=== PATIENT | female | born 1990 | race Caucasian/White ===

== ENCOUNTER 2016-05-24 21:48 | Emergency (ER) | payer MEDICAID, SELFPAY ==
[~2016-05-24] VITALS: Ht 160 cm; Wt 50.8 kg
[~2016-05-24 21:48] MED LIST: guaiFENesin ER 600 MG TAB PO ONE
[2016-05-24] MEDS ORDERED: ZITHTAB AD (23:44)
[2016-05-24] MEDS ORDERED: FLON1SPR (23:44)
[2016-05-24] MEDS ORDERED: MUCI600T34 PO (23:44)
[2016-05-24] MEDS ORDERED: guaiFENesin ER 600 MG TAB PO ONE (23:45)
[2016-05-24] MEDS ORDERED: AZITHROMYCIN 250 MG TAB PO ONE (23:45)
[2016-05-24] MEDS ORDERED: ACETAMINOPHEN 325 MG TAB PO ONE (23:45)
[2016-05-25] MEDS ORDERED: ONDANSETRON 4 MG TAB (S0181) PO ONE (00:15)
[2016-05-25 00:29] VITALS: BP 115/64
== END 2016-05-25 00:31 | disposition home or self-care (01) ==
LOC: M ED 22:50
DX: H65.02 Acute serous otitis media, left ear (principal); F17.210 Nicotine dependence, cigarettes, uncomplicated; Z88.0 Allergy status to penicillin; Z88.2 Allergy status to sulfonamides

== ENCOUNTER 2016-11-09 17:42 | Inpatient (IN) | payer SELFPAY ==
[~2016-11-09] VITALS: Ht 160 cm; Wt 48.0 kg
[~2016-11-09 17:42] MED LIST changes: +FLON1SPR; +MUCI600T37 PO; +ZITHTAB AD; -guaiFENesin ER 600 MG TAB PO ONE
[2016-11-09] MEDS ORDERED: BUSP10TA PO (17:59)
[2016-11-09] MEDS ORDERED: CELE10TA PO (17:59)
[2016-11-09] MEDS ORDERED: CITA10TA5 PO (18:24)
[2016-11-09] MEDS ORDERED: BUSP5TA PO (18:25)
[2016-11-09] MEDS ORDERED: CITA20TA4 PO (18:25)
[2016-11-09] MEDS ORDERED: MAALOX 30 ML SUSP *UDC PO PRN (19:45)
[2016-11-09] MEDS ORDERED: LORazepam 1 MG TAB PO PRN (19:45)
[2016-11-09] MEDS ORDERED: MOM 30ML SUSPENSION UDC PO PRN (19:45)
[2016-11-09 20:45] VITALS: BP 107/73
[2016-11-09] MEDS: ACETAMINOPHEN TAB 650MG DOSE (2X325MG) PO PRN (21:07)
[2016-11-09] MEDS: QUEtiapine FUMARATE 100 MG TAB PO PRN (23:01)
[2016-11-10 07:12] VITALS: BP 107/73
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
[2016-11-10] MEDS: hydrOXYzine 50 MG TAB PO SCH ×2 (11:06→18:17)
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
[2016-11-10] MEDS: NICOTINE 21MG/24HR 1 EA TRANSDERMAL TD SCH (15:55)
[2016-11-10 18:00] VITALS: BP 99/69
[2016-11-10] MEDS: QUEtiapine FUMARATE 100 MG TAB PO PRN (21:32)
[2016-11-11] MEDS: hydrOXYzine 50 MG TAB PO SCH ×3 (00:23→12:22)
[2016-11-11 06:00] VITALS: BP 95/65
[2016-11-11] MEDS: ACETAMINOPHEN TAB 650MG DOSE (2X325MG) PO PRN (06:50)
[2016-11-11] MEDS: NICOTINE 21MG/24HR 1 EA TRANSDERMAL TD SCH (08:31)
[2016-11-11] MEDS ORDERED: NITROFURANTOIN (MACROBID) 100 MG CAP PO SCH (09:00)
--- NOTE | 2016-11-11 09:25 | MHIPNPDOC ---
[facility] Progress Note Progress Note DATE OF SERVICE: 11/11/16 HISTORY: day 3 of admission VITAL SIGNS: See below. NEW TEST RESULTS: . CURRENT MEDICATIONS: See below. MENTAL STATUS EXAMINATION: Patient is a -year old female, who is . Speech: Is . Language skills are . Thought processes including: . Thought content: . Abstract reasoning, and computation: . Description of associations: . Description of abnormal or psychotic thoughts: . Judgment: . Insight: [very limited, good, fair. poor]. Orientation: . Recent and remote memory: . Attention span and concentration: . Language: . Fund of knowledge: . Mood: . Affect: . DIAGNOSES: 1. . 2. . 3. . ASSESSMENT: MANAGEMENT PLAN: . TIME SPENT: minutes. Vital Signs Vital Signs Date Time Temp Pulse Resp B/P (MAP) Pulse Ox O2 Delivery O2 Flow Rate FiO2 11/11/16 06:00 97.5 98 18 95/65 (75) Room Air 11/10/16 07:12 98 Current Medications Current Medications Acetaminophen (Tylenol Tab) 650 mg Q6HP PRN PO HEADACHE or DISCOMFORT Last administered on 11/11/16 06:50; Start 11/09/16 at 19:45; Stop 12/09/16 at 19: 44 Al Hydrox/Mg Hydrox/Simethicone (Mylanta) 30 ml Q4HP PRN PO HEARTBURN/ INDIGESTION; Start 11/09/16 at 19:45; Stop 12/09/16 at 19:44 Home Med (Med Rec Complete!) ASDIRECTED XX ; Start 11/09/16 at 18:30; Stop at 18:30; Status DC Hydroxyzine HCl (Atarax) 50 mg Q6H PO Last administered on 11/11/16 06:05; Start 11/10/16 at 12:00; Stop 12/10/16 at 11:59 Lorazepam (Ativan) 1 mg TIDP PRN PO ANXIETY/AGITATION; Start 11/09/16 at 19:45 ; Stop 11/16/16 at 19:44; Status Cancel Magnesium Hydroxide (Milk Of Magnesia) 30 ml DAILYPRN PRN PO CONSTIPATION; Start 11/09/16 at 19:45; Stop 12/09/16 at 19:44 Nicotine (Nicoderm Cq 21mg) 1 patch DAILY TD Last administered on 11/11/16 08: 31; Start 11/10/16 at 09:00; Stop 12/10/16 at 08:59 Quetiapine Fumarate (SEROquel) 100 mg QHSP PRN PO SLEEP Last administered on 21:32; Start 11/09/16 at 19:45; Stop 12/09/16 at 19:44 Allergies Coded Allergies: Amoxicillin (Verified Allergy, Unknown, hives, 11/09/16) Penicillins (Verified Allergy, Unknown, hives, 11/09/16) Sulfa Antibiotics (Verified Allergy, Unknown, hives, 11/09/16) Ruth Ventura Nov 11, 2016 09:24
[2016-11-11] MEDS ORDERED: HYDRO50TAB PO (12:00)
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
[2016-11-11] MEDS ORDERED: NITR100C2 PO (14:22)
== END 2016-11-11 15:50 | disposition home or self-care (01) | DRG 754 ==
LOC: M ED 17:42 → M ED INP 19:34 → M PSY 20:41
PROVIDERS: ADMIT Psychiatry & Neurology Psychiatry; ATTEND Psychiatry & Neurology Psychiatry
DX: F32.9 Major depressive disorder, single episode, unspecified (principal); F19.94 Other psychoactive substance use, unspecified with psychoactive substance-induced mood disorder; Z63.4 Disappearance and death of family member; F43.21 Adjustment disorder with depressed mood; Z88.0 Allergy status to penicillin; Z88.2 Allergy status to sulfonamides; F17.200 Nicotine dependence, unspecified, uncomplicated; Z79.899 Other long term (current) drug therapy

== ENCOUNTER 2016-12-22 12:34 | Inpatient (IN) | payer SELFPAY ==
[2016-12-21 16:52] VITALS: BP 113/70
[~2016-12-22] VITALS: Ht 160 cm; Wt 47.0 kg
[~2016-12-22 12:34] MED LIST changes: +BUSP10TA PO; +BUSP5TA PO; +CELE10TA PO; +CITA10TA5 PO; +CITA20TA4 PO; +CitaloPRAM (CeleXA) 20 MG TAB PO SCH; +HYDRO50TAB PO; +NITR100C2 PO
[2016-12-22] MEDS ORDERED: WELL100T2 PO (12:48)
[2016-12-22 13:52] LABS: MEAN CORPUSCULAR HEMOGLOBIN 29.3 pg (27.0-33.0); MEAN CORPUSCULAR HGB CONC 33.3 g/dl (32.0-36.5); PLATELET COUNT, AUTOMATED 218 10^3/uL (150-450); RED CELL DISTRIBUTION WIDTH 12.3 % (11.5-14.5); WHITE BLOOD COUNT 6.7 10^3/uL (4.0-10.0)
[2016-12-22 14:12] LABS: CONTROL LINE HCG INT CTR LINE PRESENT
[2016-12-22 14:28] LABS: ALBUMIN 4.1 GM/DL (3.2-5.2); ALBUMIN/GLOBULIN RATIO 1.28 (1.00-1.93); ALKALINE PHOSPHATASE 66 U/L (45-117); ALT/SGPT 14 U/L (12-78); ANION GAP 3 MEQ/L (8-16); AST/SGOT 12 U/L (7-37); BILIRUBIN,DIRECT 0.3 MG/DL (0.0-0.2); BILIRUBIN,TOTAL 1.1 MG/DL (0.2-1.0); BLOOD UREA NITROGEN 12 MG/DL (7-18); CALCIUM LEVEL 9.1 MG/DL (8.5-10.1); CARBON DIOXIDE LEVEL 31 MEQ/L (21-32); CHLORIDE LEVEL 106 MEQ/L (98-107); CREATININE FOR GFR 0.83 MG/DL (0.55-1.02); GLOMERULAR FILTRATION RATE > 60.0 (>60); GLUCOSE, FASTING 56 MG/DL (70-105); POTASSIUM SERUM 3.9 MEQ/L (3.5-5.1); SODIUM LEVEL 140 MEQ/L (136-145); TOTAL PROTEIN 7.3 GM/DL (6.4-8.2)
[2016-12-22 14:30] LABS: METHADONE URINE NEGATIVE (NEGATIVE)
[2016-12-22] MEDS ORDERED: MAALOX 30 ML SUSP *UDC PO PRN (15:15)
[2016-12-22] MEDS ORDERED: MOM 30ML SUSPENSION UDC PO PRN (15:15)
[2016-12-22] MEDS ORDERED: HYDR-3363 PO (19:10)
[2016-12-22] MEDS: QUEtiapine FUMARATE 25 MG TAB PO PRN (20:09)
[2016-12-22] MEDS: OLANZapine ORAL DISINTEGRATING TAB 5MG PO PRN (21:29)
[2016-12-23 06:33] VITALS: BP 95/53
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
[2016-12-23] MEDS ORDERED: PARoxetine 12.5 MG **CR** TAB PO SCH (09:00)
[2016-12-23] MEDS: NICOTINE 21MG/24HR 1 EA TRANSDERMAL TD SCH ×2 (09:00→14:27)
--- NOTE | 2016-12-23 10:28 | REP ---
CT Head without contrast HISTORY: Left ear numbness COMPARISON: None There is no intraparenchymal hemorrhage, acute infarct, mass or midline shift. The ventricular system is normal in appearance. There is no extra cerebral collection. There is no fracture. The visualized sinuses and mastoid air cells are clear. IMPRESSION: There is no intracranial lesion. Signed by Jim Estrada MD 12/23/2016 10:19 A
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
[2016-12-23] MEDS: ACETAMINOPHEN TAB 650MG DOSE (2X325MG) PO PRN ×2 (16:10→17:41)
[2016-12-23 18:00] VITALS: BP 117/55
--- NOTE | 2016-12-23 20:15 | ECGEPIP ---
Stationary ECG Study [facility] Test Date: 2016-12-23 Pat Name: OLESYA ROSS Department: Room: [place] [address] Gender: F Bank Courier: KENDY : 1990 Requested By: Lauren Dow Order Number: [id number] Reading MD: Marilyn Rosas Measurements Intervals [place] Rate: 56 P: 37 MN: 148 QRS: 74 QRSD: 93 T: 68 QT: 389 QTc: 377 Interpretive Statements SINUS BRADYCARDIA NO PRIOR Electronically Signed On 12-23-2016 20:15:33 EST by Marilyn Rosas
[2016-12-23] MEDS: QUEtiapine FUMARATE 25 MG TAB PO PRN (20:51)
[2016-12-24 06:28] VITALS: BP 119/60
[2016-12-24] MEDS: OLANZapine ORAL DISINTEGRATING TAB 5MG PO PRN (08:21)
[2016-12-24] MEDS: NICOTINE 21MG/24HR 1 EA TRANSDERMAL TD SCH (08:21)
[2016-12-24] MEDS: PARoxetine 25 MG CR TAB (PAXIL CR) PO SCH (08:21)
[2016-12-24] MEDS: risperiDONE 1 MG TAB PO SCH ×2 (09:00→20:25)
[2016-12-24] MEDS ORDERED: INFLUENZA QUADRIVALENT PF VACCINE 0.5ML SYRINGE (90686) IM ONE (09:00)
[2016-12-24 09:49] VITALS: BP 119/60
[2016-12-24 10:34] LABS: FOLATE 15.4 NG/ML (>5.4)
[2016-12-24] MEDS: hydrOXYzine 25 MG TAB PO SCH ×2 (16:52→20:24)
[2016-12-24 18:00] VITALS: BP 113/75
[2016-12-24] MEDS: QUEtiapine FUMARATE 25 MG TAB PO PRN (20:24)
[2016-12-25 06:41] VITALS: BP 124/72
[2016-12-25] MEDS: risperiDONE 1 MG TAB PO SCH ×2 (08:44→21:51)
[2016-12-25] MEDS: hydrOXYzine 25 MG TAB PO SCH ×3 (08:44→21:51)
[2016-12-25] MEDS: NICOTINE 21MG/24HR 1 EA TRANSDERMAL TD SCH (08:44)
[2016-12-25] MEDS: PARoxetine 25 MG CR TAB (PAXIL CR) PO SCH (08:44)
[2016-12-25] MEDS: ACETAMINOPHEN TAB 650MG DOSE (2X325MG) PO PRN (09:30)
[2016-12-25] MEDS ORDERED: SUMAtriptan SUCCINATE 25 MG TAB PO ONE (12:15)
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
[2016-12-25] MEDS: LevoFLOXacin 500 MG TABLET PO SCH (14:04)
[2016-12-25 18:00] VITALS: BP 118/78
[2016-12-25] MEDS ORDERED: INFLUENZA QUADRIVALENT PF VACCINE 0.5ML SYRINGE (90686) IM ONE (18:45)
[2016-12-25] MEDS: OLANZapine ORAL DISINTEGRATING TAB 5MG PO PRN (19:52)
--- NOTE | 2016-12-25 21:29 | MHIPN ---
DATE: 12/25/2016 HISTORY: A 26-year-old female admitted for depression and risk of suicide. MEDICATIONS: - Paxil 25 mg by mouth every morning - Risperdal 1 mg by mouth twice a day - Seroquel 75 mg by mouth at bedtime as needed SUBJECTIVE: "I have a bad migraine." OBJECTIVE: The patient is in bed, covering her head because of a severe migraine by her report. She also has a urinary tract infection (UTI) which is positive for Escherichia (E.) coli. The patient is denying side effect from the medication. MENTAL STATUS EXAMINATION: The patient is dressed in [facility]. The patient is cooperative. Has poor eye contact. Speech is slow and monotone. Mood is depressed and anxious. Affect is restricted. No evidence of delusions or hallucinations. Memory, attention and concentration are fair. The patient is able to contract for safety while in the hospital. Insight and judgment are limited. ASSESSMENT: 1. Depression. 2. Risk for suicide. 3. Cocaine/cannabis abuse. PLAN: 1. Start Levaquin 500 mg by mouth daily for UTI 2. Give Imitrex 50 mg by mouth now times one for migraine. 3. Continue Paxil 25 mg by mouth every morning. 4. Continue Risperdal 1 mg by mouth twice a day. 5. Continue Seroquel 75 mg by mouth at bedtime as needed for insomnia. 6. Continue medication management, individual and group therapy.
[2016-12-25] MEDS: QUEtiapine FUMARATE 25 MG TAB PO PRN (21:51)
[2016-12-26] MEDS: LevoFLOXacin 500 MG TABLET PO SCH (05:59)
[2016-12-26 06:45] VITALS: BP 114/54
[2016-12-26] MEDS: PARoxetine 25 MG CR TAB (PAXIL CR) PO SCH (08:30)
[2016-12-26] MEDS: hydrOXYzine 25 MG TAB PO SCH ×3 (08:30→20:59)
[2016-12-26] MEDS: NICOTINE 21MG/24HR 1 EA TRANSDERMAL TD SCH (08:30)
[2016-12-26] MEDS: risperiDONE 1 MG TAB PO SCH ×2 (08:30→20:59)
[2016-12-26] MEDS: ACETAMINOPHEN TAB 650MG DOSE (2X325MG) PO PRN ×2 (08:30→16:11)
[2016-12-26] MEDS: OLANZapine ORAL DISINTEGRATING TAB 5MG PO PRN (10:26)
[2016-12-26 12:30] VITALS: BP 94/54
[2016-12-26 18:00] VITALS: BP 109/55
[2016-12-26 20:06] LABS: BASO % 0.3 % (0.0-1.0); EOS % 0.3 % (0.0-3.0); IMMATURE GRANULOCYTE % 0.3 % (0-0); LYMPH # 1.3 10^3/uL (1.5-6.5); LYMPH % 16.2 % (24.0-44.0); MEAN CORPUSCULAR HEMOGLOBIN 29.6 pg (27.0-33.0); MEAN CORPUSCULAR HGB CONC 34.5 g/dl (32.0-36.5); MEAN CORPUSCULAR VOLUME 85.6 fl (80.0-96.0); MONO # 0.6 10^3/uL (0.0-0.8); MONO % 7.8 % (0.0-5.0); NEUTROPHILS % 75.1 % (36.0-66.0); PLATELET COUNT, AUTOMATED 174 10^3/uL (150-450)
[2016-12-26] MEDS: ONDANSETRON 4 MG ORAL DISINTEGRATING TAB (S0181) SL SCH (20:25)
--- NOTE | 2016-12-26 20:33 | MHIPN ---
DATE: 12/26/2016 HISTORY: A 26-year-old female admitted for depression and suicide risk. MEDICATIONS: - Paxil 25 mg by mouth every morning - Risperdal 1 mg by mouth twice a day - Seroquel 75 mg by mouth at bedtime SUBJECTIVE: "My migraine is back." OBJECTIVE: The patient reports some degree of dizziness and weakness when she gets out of bed. Says that her migraine was better after she took Imitrex but it is back this morning. She is being treated for urinary tract infection (UTI) with Levaquin. UTI is positive for Escherichia (E.) coli. The patient continues somewhat depressed with a sad, restricted facial expression. No evidence of psychotic features. No auditory or visual hallucinations or delusions. The patient denies side effect from the medication. MENTAL STATUS EXAMINATION: The patient dressed in [facility]. The patient is cooperative, has poor eye contact. Speech is slow and monotone. Mood is depressed and anxious. Affect is restricted. No delusions or hallucinations. Memory, attention and concentration are fair. The patient is able to contract for safety while in the hospital. Insight and judgment are limited. ASSESSMENT: 1. Depression. 2. Risk for suicide. 3. Cocaine/cannabis abuse. PLAN: 1. Continue Paxil 25 mg by mouth every morning. 2. Continue Risperdal 1 mg by mouth twice a day. 3. Continue Seroquel 75 by mouth at bedtime as needed for insomnia 4. Continue medication management, individual and group therapy.
[2016-12-26 20:43] LABS: ALBUMIN/GLOBULIN RATIO 1.54 (1.00-1.93); ALKALINE PHOSPHATASE 59 U/L (45-117); ALT/SGPT 14 U/L (12-78); ANION GAP 6 MEQ/L (8-16); AST/SGOT 9 U/L (7-37); BILIRUBIN,TOTAL 1.3 MG/DL (0.2-1.0); BLOOD UREA NITROGEN 17 MG/DL (7-18); CALCIUM LEVEL 9.1 MG/DL (8.5-10.1); CARBON DIOXIDE LEVEL 28 MEQ/L (21-32); CHLORIDE LEVEL 105 MEQ/L (98-107); CREATININE FOR GFR 0.93 MG/DL (0.55-1.02); GLOMERULAR FILTRATION RATE > 60.0 (>60); GLUCOSE, FASTING 129 MG/DL (70-105); POTASSIUM SERUM 3.9 MEQ/L (3.5-5.1); SODIUM LEVEL 139 MEQ/L (136-145); TOTAL PROTEIN 6.6 GM/DL (6.4-8.2)
[2016-12-26] MEDS: QUEtiapine FUMARATE 25 MG TAB PO PRN (21:01)
[2016-12-26] MEDS: NITROFURANTOIN (MACROBID) 100 MG CAP PO SCH (21:27)
[2016-12-27] MEDS: ONDANSETRON 4 MG ORAL DISINTEGRATING TAB (S0181) SL SCH ×3 (02:00→13:37)
[2016-12-27 06:37] VITALS: BP 117/72
[2016-12-27 07:29] LABS: BASO % 0.7 % (0.0-1.0); EOS # 0.1 10^3/uL (0.0-0.50); IMMATURE GRANULOCYTE % 0.2 % (0-0); LYMPH # 1.6 10^3/uL (1.5-6.5); LYMPH % 26.3 % (24.0-44.0); MEAN CORPUSCULAR HEMOGLOBIN 29.3 pg (27.0-33.0); MEAN CORPUSCULAR HGB CONC 33.6 g/dl (32.0-36.5); MONO # 0.6 10^3/uL (0.0-0.8); MONO % 9.6 % (0.0-5.0); NEUTROPHILS # 3.7 10^3/uL (1.8-7.7); NEUTROPHILS % 61.2 % (36.0-66.0); PLATELET COUNT, AUTOMATED 180 10^3/uL (150-450); RED CELL DISTRIBUTION WIDTH 12.1 % (11.5-14.5); WHITE BLOOD COUNT 6.1 10^3/uL (4.0-10.0)
[2016-12-27 08:03] LABS: ALBUMIN 4.1 GM/DL (3.2-5.2); ALBUMIN/GLOBULIN RATIO 1.46 (1.00-1.93); ALKALINE PHOSPHATASE 62 U/L (45-117); ALT/SGPT 15 U/L (12-78); ANION GAP 8 MEQ/L (8-16); AST/SGOT 11 U/L (7-37); BILIRUBIN,TOTAL 1.2 MG/DL (0.2-1.0); BLOOD UREA NITROGEN 15 MG/DL (7-18); CALCIUM LEVEL 8.9 MG/DL (8.5-10.1); CARBON DIOXIDE LEVEL 27 MEQ/L (21-32); CHLORIDE LEVEL 105 MEQ/L (98-107); CREATININE FOR GFR 0.96 MG/DL (0.55-1.02); GLOMERULAR FILTRATION RATE > 60.0 (>60); GLUCOSE, FASTING 76 MG/DL (70-105); POTASSIUM SERUM 4.2 MEQ/L (3.5-5.1); SODIUM LEVEL 140 MEQ/L (136-145); TOTAL PROTEIN 6.9 GM/DL (6.4-8.2)
[2016-12-27] MEDS: PARoxetine 25 MG CR TAB (PAXIL CR) PO SCH (08:15)
[2016-12-27] MEDS: hydrOXYzine 25 MG TAB PO SCH (08:15)
[2016-12-27] MEDS: NITROFURANTOIN (MACROBID) 100 MG CAP PO SCH (08:15)
[2016-12-27] MEDS: risperiDONE 1 MG TAB PO SCH (08:15)
[2016-12-27] MEDS: NICOTINE 21MG/24HR 1 EA TRANSDERMAL TD SCH (08:15)
[2016-12-27] MEDS: ACETAMINOPHEN TAB 650MG DOSE (2X325MG) PO PRN (08:36)
[2016-12-27] MEDS ORDERED: ONDA4TAB6 SL (11:14)
[2016-12-27] MEDS ORDERED: QUET1TAB7 PO (11:14)
[2016-12-27] MEDS ORDERED: MACR100C43 PO (11:14)
[2016-12-27] MEDS ORDERED: PARO25TA PO (11:14)
[2016-12-27] MEDS ORDERED: RISP1TAB42 PO (11:14)
[2016-12-27] MEDS ORDERED: NICO21PAT TD (11:14)
[2016-12-27] MEDS ORDERED: HYDR-3363 PO (11:14)
[2016-12-27] MEDS ORDERED: OLAN5ZYD PO (11:14)
[2016-12-27] MEDS: OLANZapine ORAL DISINTEGRATING TAB 5MG PO PRN (11:38)
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
--- NOTE | 2016-12-28 07:27 | MHIPN ---
DATE OF SERVICE: 12/26/2016 This is a 26-year-old female inpatient on the mental health unit who states that since yesterday, she has been nauseated. She has had three emesis today. She had emesis of her breakfast and lunch, this afternoon another emesis of liquids. She has not had any nausea. She denies any abdominal pain. She denies any hemoptysis, hematemesis, hematochezia, melena, rectal bleeding. She has slight lightheadedness. No chills. OBJECTIVE: Temperature 99.4, blood pressure 109/56, pulse 86, respirations 16. Lying blood pressure was 129/63, sitting 120/54 and standing 129/61. Pulse lying 85, sitting 92, standing 110. Patient is alert and oriented times three. Pupils equal and reactive to light. Extraocular movement intact. Cornea and sclera clear. Conjunctiva normal. No facial asymmetry. Buccal mucosa slightly dry. Tongue and gums pink and moist. Tongue is midline. Neck is supple, without lymphadenopathy. No thyromegaly. No goiter. Carotids 2+ without bruit. Chest clear to auscultation, without wheeze or retraction. Heart is regular. Abdomen soft, nontender, no masses, pulsations or bruits. No organomegaly. Bowel sounds positive. No CVA tenderness bilaterally. /Rectal: Not done. Extremities show equal strength. Full range of motion. No cyanosis, clubbing or edema. Peripheral pulses equal and palpable bilaterally. Skin is warm and dry. IMPRESSION: Nausea and vomiting, probably viral. She has no pain. Will get a STAT CBC, CMP, repeat in the morning. Will encourage at least 8-10 glasses per day starting today of clear non-caffeinated liquids. Zofran for nausea. Recheck labs in the morning. Patient was instructed to notify staff if she had any further emesis or developed any abdominal pain or discomfort. She verbalized agreement and understanding.
== END 2016-12-27 13:35 | disposition home or self-care (01) | DRG 753 ==
LOC: M ED 12:34 → M ED INP 15:06 → M PSY 16:10
PROVIDERS: ADMIT Psychiatry & Neurology Psychiatry; ATTEND Psychiatry & Neurology Psychiatry
DX: F31.9 Bipolar disorder, unspecified (principal); F14.10 Cocaine abuse, uncomplicated; F60.3 Borderline personality disorder; F17.210 Nicotine dependence, cigarettes, uncomplicated; F43.10 Post-traumatic stress disorder, unspecified; R94.6 Abnormal results of thyroid function studies; R20.0 Anesthesia of skin; F12.10 Cannabis abuse, uncomplicated; Z79.899 Other long term (current) drug therapy; Z91.5 Personal history of self-harm; Z88.0 Allergy status to penicillin; Z88.2 Allergy status to sulfonamides; Z88.1 Allergy status to other antibiotic agents

== ENCOUNTER 2017-01-08 14:29 | Inpatient (IN) | payer MEDICAID, SELFPAY ==
[~2017-01-08] VITALS: Ht 160 cm; Wt 49.0 kg
[~2017-01-08 14:29] MED LIST changes: -CitaloPRAM (CeleXA) 20 MG TAB PO SCH; +HYDR-3363 PO; +MACR100C43 PO; +NICO21PAT TD; +OLAN5ZYD PO; +ONDA4TAB6 SL; +PARO25TA PO; +QUET1TAB7 PO; +RISP1TAB42 PO; +WELL100T2 PO
[2017-01-08 15:17] LABS: MEAN CORPUSCULAR HEMOGLOBIN 29.6 pg (27.0-33.0); MEAN CORPUSCULAR HGB CONC 34.1 g/dl (32.0-36.5); MEAN CORPUSCULAR VOLUME 86.8 fl (80.0-96.0); PLATELET COUNT, AUTOMATED 229 10^3/uL (150-450); RED CELL DISTRIBUTION WIDTH 12.2 % (11.5-14.5); WHITE BLOOD COUNT 10.9 10^3/uL (4.0-10.0)
[2017-01-08 15:28] LABS: CONTROL LINE HCG INT CTR LINE PRESENT
[2017-01-08 15:35] LABS: METHADONE URINE NEGATIVE (NEGATIVE)
[2017-01-08 15:44] LABS: ALBUMIN 3.8 GM/DL (3.2-5.2); ALBUMIN/GLOBULIN RATIO 1.52 (1.00-1.93); ALKALINE PHOSPHATASE 56 U/L (45-117); ALT/SGPT 14 U/L (12-78); ANION GAP 7 MEQ/L (8-16); AST/SGOT 11 U/L (7-37); BILIRUBIN,DIRECT 0.3 MG/DL (0.0-0.2); BLOOD UREA NITROGEN 14 MG/DL (7-18); CALCIUM LEVEL 8.6 MG/DL (8.5-10.1); CARBON DIOXIDE LEVEL 27 MEQ/L (21-32); CHLORIDE LEVEL 108 MEQ/L (98-107); CREATININE FOR GFR 0.74 MG/DL (0.55-1.02); GLOMERULAR FILTRATION RATE > 60.0 (>60); GLUCOSE, FASTING 95 MG/DL (70-105); POTASSIUM SERUM 3.2 MEQ/L (3.5-5.1); SODIUM LEVEL 142 MEQ/L (136-145); TOTAL PROTEIN 6.3 GM/DL (6.4-8.2)
[2017-01-08] MEDS ORDERED: ACETAMINOPHEN TAB 650MG DOSE (2X325MG) PO PRN (16:15)
[2017-01-08] MEDS ORDERED: MOM 30ML SUSPENSION UDC PO PRN (16:15)
[2017-01-08] MEDS ORDERED: traZODone 50 MG TAB PO PRN (16:15)
[2017-01-08] MEDS ORDERED: MAALOX 30 ML SUSP *UDC PO PRN (16:15)
[2017-01-08] MEDS ORDERED: RISP1TAB3 PO (16:30)
[2017-01-08] MEDS ORDERED: ONDA4TAB6 SL (16:30)
[2017-01-08] MEDS ORDERED: PARO25TA PO (16:30)
[2017-01-08] MEDS ORDERED: QUEtiapine FUMARATE 25 MG TAB PO PRN (16:30)
[2017-01-08] MEDS ORDERED: QUET1TAB7 PO (16:30)
[2017-01-08] MEDS ORDERED: HYDR-3363 PO (16:30)
[2017-01-08] MEDS ORDERED: ONDANSETRON 4 MG ORAL DISINTEGRATING TAB (S0181) PO PRN (16:30)
[2017-01-08] MEDS ORDERED: OLAN5ZYD PO (16:30)
[2017-01-08] MEDS ORDERED: POTASSIUM CHLORIDE 10 MEQ SR TABLET PO ONE (16:45)
[2017-01-08 17:23] VITALS: BP 110/62
[2017-01-08] MEDS: hydrOXYzine 25 MG TAB PO SCH (21:00)
[2017-01-08] MEDS: risperiDONE 1 MG TAB PO SCH (21:01)
[2017-01-09 06:41] VITALS: BP 98/51
[2017-01-09] MEDS: risperiDONE 1 MG TAB PO SCH ×2 (08:41→20:29)
[2017-01-09] MEDS: PARoxetine 25 MG CR TAB (PAXIL CR) PO SCH (08:41)
[2017-01-09] MEDS: hydrOXYzine 25 MG TAB PO SCH ×3 (08:42→20:30)
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
[2017-01-09] MEDS: NICOTINE 21MG/24HR 1 EA TRANSDERMAL TD SCH (16:09)
[2017-01-09 18:00] VITALS: BP 99/54
[2017-01-09] MEDS ORDERED: EXCEDRIN MIGRAINE TABLET PO PRN (22:30)
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
[2017-01-10 06:00] VITALS: BP 107/53
[2017-01-10] MEDS: hydrOXYzine 25 MG TAB PO SCH ×4 (08:25→20:57)
[2017-01-10] MEDS: risperiDONE 1 MG TAB PO SCH ×2 (08:25→20:57)
[2017-01-10] MEDS: PARoxetine 25 MG CR TAB (PAXIL CR) PO SCH (08:25)
[2017-01-10 08:34] LABS: ANION GAP 6 MEQ/L (8-16); BLOOD UREA NITROGEN 12 MG/DL (7-18); CALCIUM LEVEL 8.7 MG/DL (8.5-10.1); CARBON DIOXIDE LEVEL 31 MEQ/L (21-32); CHLORIDE LEVEL 106 MEQ/L (98-107); CREATININE FOR GFR 0.86 MG/DL (0.55-1.02); GLOMERULAR FILTRATION RATE > 60.0 (>60); GLUCOSE, FASTING 80 MG/DL (70-105); SODIUM LEVEL 143 MEQ/L (136-145)
--- NOTE | 2017-01-10 08:34 | ECGEPIP ---
Stationary ECG Study [facility] - ED Test Date: 2017-01-08 Pat Name: OLESYA ROSS Department: Room: [place] [address] Gender: F [employer] Operator: beth : 1990 Requested By: Flavia Santoyo Order Number: [id number] Reading MD: Azam Ramirez Measurements Intervals [place] Rate: 66 P: 22 MO: 140 QRS: 70 QRSD: 105 T: 51 QT: 405 QTc: 425 Interpretive Statements SINUS RHYTHM SIMILAR TO 12/23/16 Electronically Signed On 01-10-2017 8:34:12 EST by Azam Ramirez
[2017-01-10] MEDS: NICOTINE 21MG/24HR 1 EA TRANSDERMAL TD SCH (09:25)
[2017-01-10] MEDS: OLANZapine 5 MG TAB PO PRN (14:36)
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
[2017-01-10 18:09] VITALS: BP 99/62
[2017-01-10] MEDS: traZODone 50 MG TAB PO SCH (20:57)
[2017-01-11 06:50] VITALS: BP 103/55
[2017-01-11] MEDS: risperiDONE 1 MG TAB PO SCH ×2 (08:36→20:48)
[2017-01-11] MEDS: hydrOXYzine 25 MG TAB PO SCH ×3 (08:37→20:48)
[2017-01-11] MEDS: NICOTINE 21MG/24HR 1 EA TRANSDERMAL TD SCH (08:37)
[2017-01-11] MEDS: PARoxetine 12.5 MG **CR** TAB PO SCH (08:38)
[2017-01-11] MEDS: PARoxetine 25 MG CR TAB (PAXIL CR) PO SCH (08:39)
--- NOTE | 2017-01-11 14:16 | MHIPNPDOC ---
[facility] Progress Note Progress Note DATE OF SERVICE: 01/11/17 HISTORY: As per Dr. Perez: " 26-year-old female with history of depression and polysubstance dependence, admitted to our unit on a 9.39 legal status. According to the record, patient came to the emergency department complaining of worsening depression and suicidal thoughts. Patient was discharged from our unit approximately 1 week ago. Says that since then she has been feeling very depressed. Stated that she lost her boyfriend, who is also her father's child, after he committed suicide in 09/2016. Also reports losing her best friend a few months ago in a motorcycle accident. Patient reports severe depression, feeling helpless, hopeless, suicidal thoughts, and unable to contract for safety. Patient was discharged on Paxil 25 mg daily, Risperdal 1 mg twice a day, from our unit. During the interview, there is no evidence of psychotic symptoms, no auditory or visual hallucinations or delusions." VITAL SIGNS: See below. NEW TEST RESULTS: N/A CURRENT MEDICATIONS: See below. MENTAL STATUS EXAMINATION: Patient is a 26-year old female, who is alert, dressed in hospital clothes, calm , fairly groomed Speech: Normal in rate, tone and volume Language skills are Good Thought processes including: Intact Thought content: Focused on being discharged. Abstract reasoning, and computation: Limited. Description of associations: Fair Description of abnormal or psychotic thoughts: Denies active/passive suicidal ideation, denies a/V hallucinations, denies thought delusions Judgment: Limited Insight: Limited Orientation: Oriented 3 Recent and remote memory: Fair Attention span and concentration: Good Language: Fair Fund of knowledge: Limited. Mood: Euthymic Affect: euthymic DIAGNOSES: 1. Major Depressive disorder, recurrent, severe 2. PTSD 3. R/O substance induced depressive disorder. ASSESSMENT: Patient says she has been using drugs but she denies cocaine use, even when she tested positive for it. I believe her mood swings are secondary to drug use and abuse, but she continues to minimize that. She says increasing paxil to 37.5 mgs. was good, she feels better and she has been able to sleep wel with Trazodone. MANAGEMENT PLAN: Will keep on the same treatment plan. Patient is requesting to be discharged because she feels better. TIME SPENT: 20 minutes. Vital Signs Vital Signs Date Time Temp Pulse Resp B/P (MAP) Pulse Ox O2 Delivery O2 Flow Rate FiO2 01/11/17 06:50 98.2 67 14 103/55 (71) Room Air 01/09/17 18:00 98 Current Medications Current Medications Acetaminophen (Tylenol Tab) 650 mg Q6HP PRN PO HEADACHE or DISCOMFORT Last administered on 01/11/17 11:08; Start 01/08/17 at 16:15; Stop 02/07/17 at 16 :14 Acetaminophen/ Aspirin/Caffeine (Excedrin Migraine) 1 ea Q6HP PRN PO HEADACHE; Start 01/09/17 at 22:30; Stop 02/08/17 at 22:29 Al Hydrox/Mg Hydrox/Simethicone (Mylanta) 30 ml Q4HP PRN PO HEARTBURN/ INDIGESTION; Start 01/08/17 at 16:15; Stop 02/07/17 at 16:14 Home Med (Med Rec Complete!) ASDIRECTED XX ; Start 01/08/17 at 16:45; Stop at 16:45; Status DC Hydroxyzine HCl (Atarax) 75 mg TID PO Last administered on 01/11/17 08:37; Start 01/08/17 at 21:00; Stop 02/07/17 at 20:59 Magnesium Hydroxide (Milk Of Magnesia) 30 ml DAILYPRN PRN PO CONSTIPATION; Start 01/08/17 at 16:15; Stop 02/07/17 at 16:14 Nicotine (Nicoderm Cq 21mg) 1 patch DAILY TD Last administered on 01/11/17 08 :37; Start 01/09/17 at 09:00; Stop 02/08/17 at 08:59 Olanzapine (ZyPREXA) 5 mg Q6HP PRN PO ANXIETY/AGITATION Last administered on 14:36; Start 01/08/17 at 16:30; Stop 02/07/17 at 16:29 Ondansetron HCl (Zofran Odt) 4 mg Q6HP PRN PO NAUSEA OR VOMITING; Start at 16:30; Stop 02/07/17 at 16:29 Paroxetine HCl (PAXil CR) 12.5 mg DAILY PO Last administered on 01/11/17 08: 38; Start 01/11/17 at 09:00; Stop 02/10/17 at 08:59 Paroxetine HCl (PAXil CR) 25 mg DAILY PO Last administered on 01/10/17 08:25 ; Start 01/09/17 at 09:00; Stop 01/10/17 at 16:17; Status DC Paroxetine HCl (PAXil CR) 25 mg DAILY PO Last administered on 01/11/17 08:39 ; Start 01/11/17 at 09:00; Stop 02/10/17 at 08:59 Quetiapine Fumarate (SEROquel) 75 mg QHSP PRN PO INSOMNIA Last administered on 01/09/17 21:18; Start 01/08/17 at 16:30; Stop 01/10/17 at 16:17; Status DC Risperidone (RisperDAL) 1 mg BID PO Last administered on 01/11/17 08:36; Start 01/08/17 at 21:00; Stop 02/07/17 at 20:59 Trazodone HCl (Desyrel) 50 mg QHSP PRN PO INSOMNIA Last administered on 21:01; Start 01/08/17 at 16:15; Stop 01/09/17 at 10:29; Status DC Trazodone HCl (Desyrel) 75 mg QHS PO Last administered on 01/10/17 20:57; Start 01/10/17 at 21:00; Stop 02/09/17 at 20:59 Allergies Coded Allergies: Amoxicillin (Verified Allergy, Unknown, hives, 11/09/16) Penicillins (Verified Allergy, Unknown, hives, 11/09/16) Sulfa Antibiotics (Verified Allergy, Unknown, hives, 11/09/16) VENANCIO HERNÁNDEZ MD Jan 11, 2017 14:16
[2017-01-11 18:00] VITALS: BP 122/62
[2017-01-11] MEDS: traZODone 50 MG TAB PO SCH (20:48)
[2017-01-12 06:30] VITALS: BP 80/43
[2017-01-12] MEDS: NICOTINE 21MG/24HR 1 EA TRANSDERMAL TD SCH (08:06)
[2017-01-12] MEDS: hydrOXYzine 25 MG TAB PO SCH ×2 (08:06→15:48)
[2017-01-12] MEDS: risperiDONE 1 MG TAB PO SCH (08:06)
[2017-01-12] MEDS: PARoxetine 25 MG CR TAB (PAXIL CR) PO SCH (08:06)
[2017-01-12] MEDS: PARoxetine 12.5 MG **CR** TAB PO SCH (08:06)
[2017-01-12] MEDS: OLANZapine 5 MG TAB PO PRN (10:50)
[2017-01-12] MEDS ORDERED: PARO12.5 PO (14:55)
[2017-01-12] MEDS ORDERED: TRAZO50TA PO (14:55)
[2017-01-12] MEDS ORDERED: PARO25TA PO (14:55)
--- NOTE | 2017-01-12 21:10 | MHDSPDOC ---
[facility] Discharge Summary Discharge Summary DATE OF ADMISSION: Jan 08, 2017 at 16:11 DATE OF DISCHARGE: Jan 12, 2017 at 16:09 DISCHARGE DIAGNOSES: 1. Borderline Personality Disorder 2. MDD, recurrent, moderate versus substance induced mood disorder 4. Polysubstance use d/o REASON FOR ADMISSION: As per Dr. Perez: " 26-year-old female with history of depression and polysubstance dependence, admitted to our unit on a 9.39 legal status. According to the record, patient came to the emergency department complaining of worsening depression and suicidal thoughts. Patient was discharged from our unit approximately 1 week ago. Says that since then she has been feeling very depressed. Stated that she lost her boyfriend, who is also her father's child, after he committed suicide in 09/2016. Also reports losing her best friend a few months ago in a motorcycle accident. Patient reports severe depression, feeling helpless, hopeless, suicidal thoughts, and unable to contract for safety. Patient was discharged on Paxil 25 mg daily, Risperdal 1 mg twice a day, from our unit. During the interview, there is no evidence of psychotic symptoms, no auditory or visual hallucinations or delusions. CONSULTANTS INVOLVED: None TREATMENT AND PROGRESS ON THE UNIT : Patient had good response to medications, she stated that she felt that Paxil was working fine but she thought that maybe a little increase in the medication will do better. She also said that she didn' t do that well on Seroquel and that she preferred to use trazodone and this was increased to 75 mg by mouth daily at bedtime. She kept using olanzapine when necessary and I increased Paxil CR to 37.5 mg by mouth daily. I encourage her to use hydroxyzine 75 mg by mouth every 6 hours when necessary for anxiety or agitation instead of olanzapine. When the patient went through her initial evaluation, she looked tired, anxious and depressed but during the next 24 hours she looked happier, calm her and she denied suicidal or homicidal ideation , however she continues to minimize the impact of drug abuse in her life, she adamantly denied using cocaine recently. I explained to her that she was discharged before on December 27 her and her previous admission was on December 22, so, it was almost 20 days since her last use, which according to her was a day or 2 before December 22. I told her cocaine can be traced given 10 days after consumption but not 20 days. She kept saying "I didn't use cocaine, I don't know why that thing showed up in my urine toxicology, that has to be an error". HOSPITAL COURSE: As above DISCHARGE ASSESSMENT: Patient was not in danger to self or others, she was not suicidal, not homicidal and not psychotic at the time of her discharge. She was discharged to her boyfriend. MENTAL STATUS EXAMINATION ON DISCHARGE: Patient is a 26-year old female, who is alert, oriented 3, cooperative with interview, with good eye contact, fairly groomed and good hygiene. Speech is intact. Language skills are good. Thought processes including: Coherent and rational. Thought content: Focused on her discharge. Abstract reasoning, and computation: Fair. Description of associations: To good. Description of abnormal or psychotic thoughts: Denies suicidal or homicidal ideation, denies thought delusions and denies auditory and visual hallucinations. Judgment: Limited. Insight: Limited. Orientation to oriented 3. Recent and remote memory: Intact. Attention span and concentration: Fair. Language: Normal. Fund of knowledge: Fair. Mood: Euthymic. Affect: Euthymic. MEDICATIONS ON DISCHARGE: (Risperidone) 1 Mg Tab, 1 MG PO BID, (Reported) Hydroxyzine HCl (Hydroxyzine HCl) 25 Mg Tab, 75 MG PO TID, (Reported) Paroxetine (Paroxetine HCl ER) 12.5 Mg Tab, 12.5 MG PO DAILY for DEPRESSION, #7 Paroxetine (Paroxetine HCl ER) 25 Mg Tab, 25 MG PO DAILY for DEPRESSION, #7 Trazodone HCl (Trazodone HCl) 50 Mg Tab, 75 MG PO QHS for insomnia, #11 Scheduled PRN Olanzapine (Olanzapine Odt) 5 Mg Tab, 5 MG PO Q6H PRN for ANXIETY/AGITATION, ( Reported) Ondansetron (Ondansetron Odt) 4 Mg Tab, 4 MG SL Q6H PRN for NAUSEA, (Reported) PLAN/FOLLOWUP ARRANGEMENTS: Mental Health Appt 1 * Mental [facility] * Therapist PENNY * Date Jan 14, 2017 * Time 10:00 * Address of Clinic or Practice [address] [place] [address] * Follow Up Care Education Label * Mental Health Appt 2 * Mental [facility] * Therapist DR. LUCAS * Date Jan 18, 2017 * Time 08:00 * Address of Clinic or Practice [address] [place] [address] * Follow Up Care Education Label * Medical * Medical Follow Up [facility] * Established With This Provider No * Therapist DR. MARIEE * Date Jan 21, 2017 * Time 11:00 * * Additional information [id number] [facility] [address] [facility] The amount of time spent in the coordination of care for this patient was approximately 30 minutes. Vital Signs/I&Os Vital Signs Date Time Temp Pulse Resp B/P (MAP) Pulse Ox O2 Delivery O2 Flow Rate FiO2 01/12/17 06:30 97.7 64 14 80/43 (55) 01/11/17 06:50 Room Air 01/09/17 18:00 98 Medications Scheduled (Risperidone) 1 Mg Tab, 1 MG PO BID, (Reported) Hydroxyzine HCl (Hydroxyzine HCl) 25 Mg Tab, 75 MG PO TID, (Reported) Paroxetine (Paroxetine HCl ER) 12.5 Mg Tab, 12.5 MG PO DAILY for DEPRESSION, #7 Paroxetine (Paroxetine HCl ER) 25 Mg Tab, 25 MG PO DAILY for DEPRESSION, #7 Trazodone HCl (Trazodone HCl) 50 Mg Tab, 75 MG PO QHS for insomnia, #11 Scheduled PRN Olanzapine (Olanzapine Odt) 5 Mg Tab, 5 MG PO Q6H PRN for ANXIETY/AGITATION, ( Reported) Ondansetron (Ondansetron Odt) 4 Mg Tab, 4 MG SL Q6H PRN for NAUSEA, (Reported) Allergies Coded Allergies: Amoxicillin (Verified Allergy, Unknown, hives, 11/09/16) Penicillins (Verified Allergy, Unknown, hives, 11/09/16) Sulfa Antibiotics (Verified Allergy, Unknown, hives, 11/09/16) VENANCIO HERNÁNDEZ MD Jan 12, 2017 21:10
== END 2017-01-12 16:09 | disposition home or self-care (01) | DRG 751 ==
LOC: M ED 14:29 → M ED INP 16:11 → M PSY 17:15
PROVIDERS: ADMIT Psychiatry & Neurology Psychiatry; ATTEND Psychiatry & Neurology Psychiatry
DX: F33.1 Major depressive disorder, recurrent, moderate (principal); F43.10 Post-traumatic stress disorder, unspecified; F12.259 Cannabis dependence with psychotic disorder, unspecified; F60.3 Borderline personality disorder; F14.24 Cocaine dependence with cocaine-induced mood disorder; F17.210 Nicotine dependence, cigarettes, uncomplicated; Z81.1 Family history of alcohol abuse and dependence; Z81.3 Family history of other psychoactive substance abuse and dependence; Z79.899 Other long term (current) drug therapy; G43.909 Migraine, unspecified, not intractable, without status migrainosus; Z91.5 Personal history of self-harm; Z88.0 Allergy status to penicillin; Z88.2 Allergy status to sulfonamides

== ENCOUNTER 2021-06-14 04:15 | Inpatient (IN) | payer OTHER, SELFPAY ==
[~2021-06-14] VITALS: Ht 160 cm; Wt 50.0 kg
[~2021-06-14 04:15] MED LIST changes: -CITA10TA5 PO; +CITA10TA7 PO; -CITA20TA4 PO; +CITA20TA6 PO; +HYDR1TAB33 PO; -HYDRO50TAB PO; +PARO12.56 PO; -PARO25TA PO; +PARO25TA5 PO; +QUET1TAB17 PO; -QUET1TAB7 PO; +RISP-8 PO; +TRAZ1TAB10 PO
[2021-06-14] MEDS ORDERED: LORazepam 1 MG TAB PO ONE (05:10)
[2021-06-14 06:14] LABS: HEMATOCRIT 43.6 % (36.0-47.0); HEMOGLOBIN 14.9 g/dl (12.0-15.5); MEAN CORPUSCULAR HEMOGLOBIN 28.9 pg (27.0-33.0); MEAN CORPUSCULAR HGB CONC 34.2 g/dl (32.0-36.5); MEAN CORPUSCULAR VOLUME 84.5 fl (80.0-96.0); PLATELET COUNT, AUTOMATED 306 10^3/uL (150-450); RED BLOOD COUNT 5.16 10^6/uL (4.00-5.40); WHITE BLOOD COUNT 13.2 10^3/uL (4.0-10.0)
[2021-06-14] MEDS ORDERED: HOME MED LIST COMPLETE! XX SCH (06:15)
[2021-06-14 06:24] LABS: AMPHETAMINES LEVEL URINE NEGATIVE (NEGATIVE); BARBITURATES URINE NEGATIVE (NEGATIVE); BENZODIAZEPINES URINE NEGATIVE (NEGATIVE); CANNABINOIDS URINE POSITIVE (NEGATIVE); COCAINE METABOLITE URINE POSITIVE (NEGATIVE); METHADONE URINE NEGATIVE (NEGATIVE); OPIATES URINE NEGATIVE (NEGATIVE); PHENCYCLIDINE URINE NEGATIVE (NEGATIVE)
[2021-06-14 06:37] LABS: ACETAMINOPHEN LEVEL < 2.0 UG/ML (10.0-30.0); ALBUMIN 4.3 GM/DL (3.2-5.2); ALT/SGPT 19 U/L (12-78); BILIRUBIN,DIRECT 0.4 MG/DL (0.0-0.2); BILIRUBIN,TOTAL 1.4 MG/DL (0.2-1.0); BLOOD UREA NITROGEN 16 MG/DL (7-18); CALCIUM LEVEL 9.1 MG/DL (8.5-10.1); CARBON DIOXIDE LEVEL 26 MEQ/L (21-32); CHLORIDE LEVEL 106 MEQ/L (98-107); CREATININE FOR GFR 0.88 MG/DL (0.55-1.30); ETHYL ALCOHOL (ETHANOL) < 0.003 % (0.000-0.010); GLOMERULAR FILTRATION RATE > 60.0 (>60); GLUCOSE, FASTING 77 MG/DL (70-100); POTASSIUM SERUM 3.4 MEQ/L (3.5-5.1); SALICYLATE LEVEL 3.1 MG/DL (5.0-30.0); SODIUM LEVEL 139 MEQ/L (136-145); THYROID STIMULATING HORMONE 0.721 uIU/ML (0.358-3.740); TOTAL PROTEIN 7.4 GM/DL (6.4-8.2)
[2021-06-14 06:38] LABS: RSV AMPLIFICATION NEGATIVE (NEGATIVE)
[2021-06-14 07:28] LABS: HCG, SERUM QUALITATIVE NEGATIVE (NEGATIVE)
[2021-06-14] MEDS ORDERED: ACETAMINOPHEN 500 MG TAB PO ONE (11:35)
[2021-06-15] MEDS ORDERED: ALBUTEROL 90 MCG/ACT 8GM HFA INHALER INH ONE (12:50)
[2021-06-15] MEDS ORDERED: ACETAMINOPHEN TAB 650MG DOSE (2X325MG) PO PRN (17:15)
[2021-06-15] MEDS ORDERED: MOM 30ML SUSPENSION UDC PO PRN (17:15)
[2021-06-15] MEDS ORDERED: MAALOX 30 ML SUSP *UDC PO PRN (17:15)
[2021-06-15] MEDS ORDERED: traZODone 50 MG TAB PO PRN (17:15)
[2021-06-15 18:44] VITALS: BP 118/66
[2021-06-15] MEDS: guaiFENesin ER 600 MG TAB PO SCH (21:41)
[2021-06-15] MEDS: BENZONATATE 100MG CAPSULE PO PRN (21:41)
[2021-06-16 06:45] VITALS: BP 121/83
[2021-06-16] MEDS: BENZONATATE 100MG CAPSULE PO PRN (06:57)
[2021-06-16] MEDS: guaiFENesin ER 600 MG TAB PO SCH (09:36)
== END 2021-06-16 12:30 | disposition home or self-care (01) | DRG 751 ==
LOC: M ED 04:15 → M ED INP 06-15 17:12 → M PSY 06-15 17:59
PROVIDERS: ADMIT Psychiatry & Neurology Psychiatry; ATTEND Psychiatry & Neurology Psychiatry
DX: F33.0 Major depressive disorder, recurrent, mild (principal); F14.10 Cocaine abuse, uncomplicated; F41.9 Anxiety disorder, unspecified; F17.200 Nicotine dependence, unspecified, uncomplicated; Z88.0 Allergy status to penicillin; Z88.2 Allergy status to sulfonamides